=== PATIENT | male | born 1995 | race Caucasian/White ===

== ENCOUNTER 2017-03-06 12:22 | Emergency (ER) | payer BC ==
[~2017-03-06] VITALS: Ht 188 cm; Wt 73.8 kg
[2017-03-06 12:25] VITALS: Ht 188 cm; Wt 73.8 kg
[2017-03-06] MEDS ORDERED: CETI10TA10 PO (12:29)
--- NOTE | 2017-03-06 13:16 | DIAGNOSTIC IMAGING REPORT ---
RIGHT HAND 3 VIEWS CLINICAL HISTORY: Right hand injury. FINDINGS: 3 views of the right hand are obtained. No prior studies are available for comparison at the time of dictation. The skeletal structures are well mineralized. There is a incomplete angulated fracture through the midshaft of the fifth metacarpal with overlying soft tissue edema. There may also be fracture at the fifth metacarpal neck. No additional fracture is seen. The joint spaces of the hand are well-maintained. IMPRESSION: Fifth metacarpal fracture as above with overlying soft tissue edema. Electronically signed by: Roman Locke M.D. 03/06/2017 1:14 PM Dictated Date/Time: 03/06/2017 1:13 PM
[2017-03-06] MEDS ORDERED: HYDR-5688 PO (13:49)
[2017-03-06 14:19] VITALS: BP 137/87; PULSE 79; O2SAT 98
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
== END 2017-03-06 14:20 | disposition home or self-care (01) ==
LOC: C.EDB 12:23 → C.EDD 14:20
DX: S62.306A Unspecified fracture of fifth metacarpal bone, right hand, initial encounter for closed fracture (principal); W51.XXXA Accidental striking against or bumped into by another person, initial encounter; Z72.0 Tobacco use